=== PATIENT | female | born 1985 | race Caucasian/White ===

== ENCOUNTER 2020-03-12 22:34 | Inpatient (IN) | payer MEDICAID ==
[~2020-03-12] VITALS: Ht 175.3 cm; Wt 77.1 kg
[2020-03-12 23:44] LABS: EOSINOPHILS % 3.4 % (0.0-5.0); HEMATOCRIT. 36.6 % (36.0-48.0); HEMOGLOBIN. 12.6 g/dL (12.0-16.0); MEAN CORPUSCULAR HEMOGLOBIN 31.9 pg (28.0-32.0); MEAN CORPUSCULAR VOLUME 92.9 fL (81.0-99.0); MONOCYTES % 9.1 % (2.0-8.0); NEUTROPHILS % 37.5 % (40.0-76.0); PLATELET 279 x1000/uL (130-400); RED BLOOD CELL COUNT 3.94 mill/uL (4.2-5.4); RED CELL DISTRIBUTION WIDTH 13.1 % (11.6-14.6)
[2020-03-12 23:46] LABS: CHLORIDE 111 mEq/L (98-107)
[2020-03-13] MEDS ORDERED: ASPIRIN 81MG TABLET PO ONE (00:30)
[2020-03-13] MEDS ORDERED: NITROGLYCERIN 0.4MG TABLET SL SL ONE (00:30)
[2020-03-13] MEDS ORDERED: DOXYCYCLINE HYCLATE 100MG CAPSULE PO ONE (00:45)
[2020-03-13] MEDS ORDERED: ONDANSETRON HCL 4MG/2ML INJ IV PRN (08:45)
[2020-03-13] MEDS ORDERED: AZITHROMYCIN 500 MG TABLET PO NR (08:45)
[2020-03-13] MEDS ORDERED: CEFTRIAXONE 1 G PREMIX 50 ML IV SCH (09:00)
[2020-03-13] MEDS ORDERED: ENOXAPARIN 80MG/0.8ML SYR SUBCUT SCH ×2 (09:30→11:00)
[2020-03-13 10:00] VITALS: BP 128/86
[2020-03-13] MEDS ORDERED: AZITHROMYCIN 500 MG TABLET PO SCH (11:00)
[2020-03-13 12:00] VITALS: BP 113/76
[2020-03-13] MEDS ORDERED: ATOR20TA65 PO (12:05)
[2020-03-13] MEDS ORDERED: CITA20SO2 PO (12:05)
[2020-03-13] MEDS ORDERED: LORA10TA7 PO (12:05)
[2020-03-13] MEDS ORDERED: P20 PO (12:05)
[2020-03-13] MEDS ORDERED: GUAI473S55 PO (12:05)
[2020-03-13] MEDS ORDERED: CLOP75TA33 PO (12:05)
[2020-03-13] MEDS ORDERED: HYDR12.54 PO (12:05)
[2020-03-13] MEDS ORDERED: ASPI-1158 PO (12:05)
[2020-03-13] MEDS: CEFTRIAXONE 1,000 MG in DEXTROSE 5% WATER 50 ML IV SCH (12:31)
[2020-03-13 13:25] LABS: PROTHROMBIN TIME 10.4 sec (9.6-11.0)
[2020-03-13 16:00] VITALS: BP 120/69
[2020-03-13 20:00] VITALS: BP 127/76
[2020-03-13] MEDS ORDERED: HYDROCODONE/ACETAMINOPHEN 5/325MG TABLET PO PRN (20:45)
[2020-03-13] MEDS ORDERED: MORPHINE SULFATE 2 MG/ML CPJ (NOT FOR IM USE) IV PRN (21:00)
[2020-03-13 23:25] LABS: CLARITY URINE CLEAR (CLEAR); COLOR URINE YELLOW (YELLOW); KETONES URINE TRACE (NEGATIVE); LEUKOCYTE ESTERASE URINE NEGATIVE (NEGATIVE); NITRITE URINE NEGATIVE (NEGATIVE); OCCULT BLOOD URINE 3+ (NEGATIVE); PH URINE 5.5 (4.5-8.0); PROTEIN URINE NEGATIVE (NEGATIVE)
[2020-03-13 23:38] LABS: *AMPHETAMINES SCREEN URINE NEGATIVE (NEGATIVE); *BARBITURATES SCREEN URINE NEGATIVE (NEGATIVE); PHENCYCLIDINE URINE SCREEN NEGATIVE (NEGATIVE)
[2020-03-13 23:39] LABS: *BENZODIAZEPINES SCREEN URINE NEGATIVE (NEGATIVE); *COCAINE SCREEN URINE NEGATIVE (NEGATIVE); METHADONE URINE SCREEN NEGATIVE (NEGATIVE); OPIATES URINE SCREEN NEGATIVE (NEGATIVE)
[2020-03-13 23:53] LABS: CANNABINOID URINE SCREEN PRESUMTIVE POSITIVE (NEGATIVE)
[2020-03-14] VITALS: BP 124/69
[2020-03-14 04:00] VITALS: BP 110/53
[2020-03-14 08:00] VITALS: BP 127/85
[2020-03-14] MEDS ORDERED: TRAMADOL 50MG TABLET PO PRN (08:30)
[2020-03-14] MEDS ORDERED: ENOXAPARIN 40MG/0.4ML SYR SUBCUT SCH (09:00)
[2020-03-14] MEDS ORDERED: AZITHROMYCIN 250 MG TABLET PO SCH ×2 (09:00)
[2020-03-14] MEDS ORDERED: ASPIRIN 81MG TABLET PO SCH (09:00)
[2020-03-14 09:02] VITALS: BP 127/85
[2020-03-14] MEDS: CEFTRIAXONE 1,000 MG in DEXTROSE 5% WATER 50 ML IV SCH (09:04)
[2020-03-14 13:21] VITALS: BP 143/51
[2020-03-14] MEDS ORDERED: AZIT250T12 MT (14:10)
[2020-03-14 16:40] VITALS: BP 132/65
== END 2020-03-14 17:35 | disposition left against medical advice (07) | DRG 203 ==
LOC: ER 22:34 → 7WST 03-13 01:03 → ENRESERV 03-13 07:43 → ER 03-13 09:54 → 7WST 03-13 18:06 → 5WST 03-13 18:08
PROVIDERS: ADMIT Internal Medicine; ATTEND Internal Medicine
DX: M94.0 Chondrocostal junction syndrome [Tietze] (principal); J18.9 Pneumonia, unspecified organism; I10 Essential (primary) hypertension; M19.90 Unspecified osteoarthritis, unspecified site; I25.10 Atherosclerotic heart disease of native coronary artery without angina pectoris; I25.2 Old myocardial infarction; Z95.5 Presence of coronary angioplasty implant and graft; Z88.6 Allergy status to analgesic agent; Z88.5 Allergy status to narcotic agent; Z88.8 Allergy status to other drugs, medicaments and biological substances; Z91.018 Allergy to other foods; Z87.891 Personal history of nicotine dependence; Z98.51 Tubal ligation status; Z03.818 Encounter for observation for suspected exposure to other biological agents ruled out
CPT/HCPCS: 36415; 71045; 80053; 80061; 80305; 81003; 83880; 84145; 84443; 84484; 85025; 85379; 86038; 86738; 87449; 87635; 93005; 93306; 99285; J0696; J1650; J2270; J7060

== ENCOUNTER 2020-07-03 00:14 | Emergency (ER) | payer MEDICAID ==
[~2020-07-03] VITALS: Ht 175.3 cm; Wt 75.0 kg
[~2020-07-03 00:14] MED LIST: ASPI-1158 PO; ATOR20TA65 PO; AZIT250T12 MT; CITA20SO2 PO; CLOP75TA33 PO; GUAI473S55 PO; HYDR12.54 PO; LORA10TA7 PO; P20 PO
[2020-07-03 03:19] VITALS: BP 100/70
== END 2020-07-03 03:22 | disposition home or self-care (01) ==
LOC: ER 00:14
DX: J20.9 Acute bronchitis, unspecified (principal); I10 Essential (primary) hypertension; I25.10 Atherosclerotic heart disease of native coronary artery without angina pectoris; Z95.5 Presence of coronary angioplasty implant and graft; Z86.73 Personal history of transient ischemic attack (TIA), and cerebral infarction without residual deficits; F12.90 Cannabis use, unspecified, uncomplicated
CPT/HCPCS: 71045; 93005; 99283